=== PATIENT | female | born 2000 | race Caucasian/White ===

== ENCOUNTER 2024-08-16 17:15 | Emergency (ER) | payer OTHER, SELFPAY ==
[2024-08-16 17:19] VITALS: BP 125/89
[2024-08-16 18:48] VITALS: BMI 28.3
--- NOTE | 2024-08-16 19:11 | ED.GENMED ---
History of Present Illness
General
Chief Complaint: Musculo-Skeletal Complaint
Source: patient
Exam Limitations: none
Time Seen by Provider: 08/16/24 18:33
Nursing documentation reviewed up to this point in time: agreed with
History of Present Illness
History of Present Illness:
Patient is a 23-year-old female presenting to the emergency department with right elbow pain after fall today. Patient states that around 1 PM today she was rockclimbing at an indoor rock wall when she fell from a few feet up. She braced with her
right arm bent�which sustained the brunt of the impact. Patient denies any head strike or loss of consciousness. Patient reports pain in her right elbow and limited ability to extend at the right elbow. Patient denies any numbness and tingling in
right arm. She does have very mild pain around her right wrist although has full range of motion.
Patient denies any pain in her lower extremities. Patient denies any headache, neck pain, nausea/vomiting, visual changes, dizziness. She denies sustaining any other injuries in the fall. She is ambulating independently without difficulty.
Review of Systems
Review of Systems
Allergies reviewed?: Yes
All Other Systems: ROS reviewed and negative except as documented in HPI and ROS
Phy Exam
Physical Exam
Physical Exam:
Vitals: Mildly hypertensive, otherwise vital signs are stable. Afebrile
General: Patient is well appearing, no acute distress
Skin: Warm and dry, no rashes or lesions. Mild edema of right elbow.
Head: Normocephalic, atraumatic
Throat: Protecting airway
Neck: Normal ROM, no cervical spine tenderness
Cardiac: Regular rate
Pulm: No apparent respiratory distress
Abdomen: Nondistended
Extremities: Mild swelling of right elbow. Tender at both radial head and proximal ulna. No obvious deformity. No ecchymoses. Patient is limited ability to fully extend at elbow due to pain. Right wrist without any bony tenderness and full
range of motion. No tenderness of right hand or right digits. Right upper extremity neurovascularly intact. Palpable radial and brachial pulse on right side. Sensation fully intact. Left upper extremity and bilateral lower extremities
atraumatic and nontender with full range of motion.
Neuro: Grossly intact
Psychiatric: Normal affect.
Course
Orders/Labs/Results
Orders:
Orders
08/16/24 17:22
CR Wrist - Right Min 3 Views Urgent
Comment:
Reason For Exam: pain injury
Elbow, 3 View, Right [CR Elbow - Right Min 3 Views] Urgent
Comment:
Reason For Exam: pain injury
08/16/24 19:08
Ibuprofen [Motrin] 400 mg PO NOW STA
08/16/24 19:23
Sling Right-Treatment ONCE
Splints/Slings/Crut- Treatment ONCE
Location: Right
Type of Splint: Long Arm
Vital Signs
Initial and Last Documented VS:
Initial Vital Signs
Temp Pulse Resp BP Pulse Ox
97.9 F 75 18 125/89 100
08/16/24 17:19 08/16/24 17:19 08/16/24 17:19 08/16/24 17:19 08/16/24 17:19
Last Documented Vital Signs
Temp Pulse Resp BP Pulse Ox
97.9 F 66 18 135/92 98
08/16/24 17:19 08/16/24 19:55 08/16/24 17:19 08/16/24 19:55 08/16/24 19:55
MDM/Problems Addressed
Differential Diagnosis Includes:
Not limited to: Elbow fracture, elbow sprain, wrist fracture, wrist sprain, elbow contusion, etc.
MDM/Problems Addressed:
23-year-old female with right elbow pain after sustaining fall earlier today while indoor rockclimbing. No numbness/tingling of right upper extremity. Some limited ability to flex/extend at elbow due to pain. No other injuries sustained from
fall. No head strike or loss of consciousness. Vital stable. On exam�patient does have mild swelling of right elbow with tenderness at both radial head and proximal ulna. No obvious deformity. No bony tenderness of right shoulder, right forearm
or right wrist. Right upper extremity neurovascular intact with palpable radial and brachial pulses. Sensation fully intact. X-rays of both right wrist and right elbow were obtained in triage. She does have an essentially nondisplaced fracture
of her right radial head with a possible avulsion fracture of her proximal ulna. Given patient's point tenderness at area of proximal ulna�suspect there is a mild fracture here. Will place patient in posterior long-arm splint, placed in shoulder
sling and have her follow-up with Ortho outpatient. Recommended rest, ice, elevation, NSAIDs for pain. Return precaution discussed. Patient comfortable plan. Case discussed with attending physician.
Chronic conditions affecting care:
N/A
Acute Exacerbation and/or Progression of Chronic Illness:
N/A
*Radiology
Radiology exam reviewed: preliminary read by ED provider (Reviewed by me-nondisplaced fracture of right radial head) and radiology read reviewed
*Pulse Oximetry
Patient hypoxic: no
*EKG
Interpreted by ED Provider?: NA
*Curb Builder Interpretation
Rate: Curb Builder- N/A
*Critical Care Note
Total Time (30-74mins, 75-104mins- exclusive of procedures): Not Applicable
ED Attending Note
-
Portions of this chart may have been created with voice recognition software.� Occasional wrong word or��sound alike� substitutions may have occurred due to the inherent limitations of voice recognition software.
Discharge Plan
Departure
Patient Disposition: Home (Routine Discharge)
Date of Disposition: 08/16/24
Time of Disposition: 19:26
Patient with high blood pressure during this ER visit?: No
Covid-19: Not Applicable
Discharge Problem:
Elbow fracture, right
Instructions: How to Use a Shoulder Sling, Elbow Fracture, Adult ED
Referrals:
Babs Zaragoza PA-C [Family Provider] -
Davide Rosa MD [Active] - Tomorrow
Stand Alone Forms: Return to Work
Activity Restrictions/Additional Instructions:
RETURN TO THE EMERGENCY DEPARTMENT WITH ANY INTRACTABLE PAIN, NUMBNESS/TINGLING IN RIGHT UPPER EXTREMITY OR ANY OTHER CONCERNS
-As discussed�your x-rays performed in the emergency department showed a fracture of the head of your radius along with a likely fracture of the proximal ulna
-You should keep your arm in the sling and continue to ice and elevate as often as possible over the next 2 days. Take Motrin and/or Tylenol as needed for pain. Be sure to move your shoulder around throughout the prevent a frozen shoulder.
-You should call orthopedics in the morning to schedule an appointment. Contact information has been provided for you above
Monitor your symptoms closely and return to the emergency department any acute worsening/new symptoms or any other concerns
Interventions
Interventions:
*Risk Screen - Suicide Last Done: 08/16/24 17:19
*General Assessment Last Done: 08/16/24 18:45
*Neglect/Abuse Screening Last Done: 08/16/24 17:19
*ED COVID-19 Vaccine History Last Done: 08/16/24 18:45
*Nursing Disposition Last Done: 08/16/24 20:08
ED-Musculoskeletal Assessment Last Done: 08/16/24 18:46
Discharge Date and Time
Discharge Date/Time: 08/16/24 20:08
Print Language: [email or web address]
[2024-08-16 19:55] VITALS: BP 135/92
[2024-08-16] MEDS: MOTRIN 400 MG PO (20:01)
== END 2024-08-16 20:08 | disposition home or self-care (01) ==
LOC: EMR 17:15
PROVIDERS: EMERGENCY PHYSICIAN Student in an Organized Health Care Education/Training Program; FAMILY PHYSICIAN Physician Assistant
DX: S52.124A Nondisplaced fracture of head of right radius, initial encounter for closed fracture (principal); W19.XXXA Unspecified fall, initial encounter
CPT/HCPCS: 99283; 29105; 73080; 73110